=== PATIENT | male | born 1950 | race Caucasian/White ===

== ENCOUNTER 2017-10-21 14:35 | Inpatient (IN) | payer BC ==
--- NOTE | 2017-10-21 14:57 | CPEKG ---
Heart Rate: 90 RR Interval: 667 P-R Interval: 180 QRSD Interval: 88 QT Interval: 364 QTC Interval: 446 P [place]: 59 QRS [place]: 60 T Wave [place]: 4 EKG Severity - ABNORMAL ECG - EKG Impression: SINUS RHYTHM EKG Impression: ABNORMAL T, CONSIDER ISCHEMIA, ANTERIOR LEADS Electronically Signed By: Brina Goodwin 21-Oct-2017 22:11:31
[2017-10-21 15:07] LABS: PLATELET COUNT 219 10^3/uL (150-400)
[2017-10-21 15:10] LABS: CREATINE KINASE 91 IU/L (0-224)
--- NOTE | 2017-10-21 15:14 | EDPHY ---
H & P Time Seen by Provider: 10/21/17 14:55 HPI/ROS: HPI Short of breath, EKG changes. 67-year-old male by ambulance from his primary care physician's office. He is accompanied by his . He describes himself as a snow bird. [place] [facility] [place] the [place]. They are there for 6 months. He returned from [place] this morning. He tells me that over the last couple of days he has felt mildly short of breath. And has not been sleeping well. He reports that when he got home from [place] today both he and his tried to sleep. He does have a history of sleep apnea. He put on his CPAP machine. He reports he was trying to sleepy kept feeling like he needed to take a big deep breath in that he was not getting enough oxygen. He reports that he went to the pharmacy. He got a pulse oximetry meter. It read in the mid 80s. He then went over to his primary care physician's office. This is Dr. Rivera. An EKG was performed at his primary care's physician's office and his physician sent him here to the emergency department for further evaluation. He also reports scuba diving last weekend in [place]. ROS: Constitutional: No fever, no chills. Fatigue today. Eyes: No discharge. No changes in vision. ENT: No sore throat. No nasal congestion or rhinorrhea. Respiratory: No cough. As above. Cardiac: No chest pain, no palpitations. Gastrointestinal: No abdominal pain, no vomiting, no diarrhea. Genitourinary: No hematuria. No dysuria or increased frequency with urination. Musculoskeletal: No back pain. No neck pain. No myalgias or arthralgias. Skin: No rashes. Neurological: No headache. No focal weakness or altered sensation. Past medical history: Type 2 diabetes, hypertension, sleep apnea, uses CPAP, hyperlipidemia, acid reflux. Social history: Nonsmoker. Drinks a couple of alcohol beverages per night. Here with his . No IV drugs or street drugs. As above. Physical Exam: General Appearance: Alert, no distress. This patient is responding to questions appropriately and in full sentences. This patient appears well- hydrated and well-nourished. Eyes: Pupils equal and round no pallor or injection. No lid edema, erythema or injection. Respiratory: There are no retractions, lungs are clear to auscultation with good air movement bilaterally. Cardiovascular: Regular rate and rhythm. No murmur appreciated. Gastrointestinal: Abdomen is soft and nontender, no masses, bowel sounds normal. No focal tenderness at McBurney's point. No Longo sign. Neurological: Motor sensory function is grossly intact. Cranial nerves are normal. Gait is normal. Skin: Warm and dry, no rashes. Musculoskeletal: Neck is supple and nontender. Extremities are symmetrical. No calf tenderness on palpation. All joints range without pain or impingement. Psychiatric: No agitation. No depression. Database: EKG: EKG time is 2:55 p.m.; EKG shows a narrow complex normal sinus rhythm with a ventricular rate of 90. The HI, QRS, QT intervals are within normal limits. T- wave inversions with subtle ST depression V1, V2 and V3. No prior EKG for comparison. Interpreted by me. Imaging: CT angiogram of chest: Significant for bilateral pulmonary emboli, mild to moderate clot burden. Throughout bilateral segmental spit. Right heart enlargement. Results discussed with staff radiologist Dr. Chris wood. Bilateral lower extremity ultrasounds: Echocardiogram: Procedures: Emergency department course: Vital signs reviewed. At rest, pulse oximetry 87% on room air. On 2-3 L of nasal cannula oxygen he is 93-94% at rest. Moderate hypertension noted. Vital signs otherwise normal. IV was placed. He was placed on a equipment monitor phototypesetting. He denies any chest pain. He is not short of breath at rest. EKG obtained and reviewed by myself. I discussed CT angiogram to evaluate for pulmonary embolism. He consents. 4:50 p.m., patient re-evaluated. Resting comfortably at this time. Results of his diagnostic testing and diagnosis of pulmonary embolism discussed with him. Echocardiogram and bilateral lower extremity Doppler ultrasounds ordered. Hospitalist paged for admission. Plan will likely be to start this patient on Lovenox. 5:20 p.m., spoke with on-call hospitalist Dr. Collins. Patient's case discussed in detail with her. She agrees with Lovenox. Echocardiogram and bilateral lower extremity ultrasounds pending. Hospitalist will follow up on the studies. Plan for admission and further evaluation discussed with the patient and his . All of their questions were answered. The patient was admitted to telemetry under the care of Dr. Collins in stable condition. Differential Diagnosis: The differential diagnosis on this patient includes but is not limited to pulmonary embolism, air embolism, acute coronary syndrome, Wellen syndrome, CHF , pneumonitis. This represents a partial list of diagnoses considered. These considerations are based on history, physical exam, past history, reassessment and diagnostic testing. Smoking Status: Never smoked Constitutional: Initial Vital Signs Temperature (C) 36.7 C 10/21/17 14:35 Heart Rate 92 10/21/17 14:35 Respiratory Rate 18 10/21/17 14:35 Blood Pressure 141/99 H 10/21/17 14:35 O2 Sat (%) 87 L 10/21/17 14:35 O2 Delivery Mode Nasal Cannula O2 (L/minute) 2 Allergies/Adverse Reactions: No Known Allergies Allergy (Verified 04/05/16 14:27) Home Medications: Medication Instructions Recorded Atorvastatin Calcium [Lipitor 40 40 mg PO DAILY 08/25/12 mg (RX)] Lisinopril [Zestril 40 mg (RX)] 40 mg PO DAILY 08/25/12 metFORMIN HCL [Glucophage 1000 mg] 1,500 mg PO BIDMEAL 08/25/12 [place] 10/21/17 Medical Decision Making - Diagnostics Imaging Results: Imaging Impressions Chest/Thorax CTA 10/21/17 14:58 Impression: 1. Acute bilateral pulmonary thromboembolic disease. 2. Mild dilatation of the right heart. Recommend clinical correlation for evidence of right heart strain. 3. Incidental left thyroid nodule. Recommend dedicated thyroid ultrasound. Findings were communicated by telephone with Dr. Brina Goodwin MD at 10/21/2017 16:35 - Data Points Laboratory Results: Laboratory Results 10/21/17 14:35 10/21/17 14:35 10/21/17 10/21/17 10/21/17 14:35 14:35 14:35 WBC 11.42 10^3/uL H 10^3/uL (3.80-9.50) RBC 5.24 10^6/uL 10^6/uL (4.40-6.38) Hgb 16.5 g/dL g/dL (13.7-17.5) Hct 47.1 % % (40.0-51.0) MCV 89.9 fL fL (81.5-99.8) MCH 31.5 pg pg (27.9-34.1) MCHC 35.0 g/dL g/dL (32.4-36.7) RDW 13.0 % % (11.5-15.2) Plt Count 219 10^3/uL 10^3/uL (150-400) MPV 11.5 fL fL (8.7-11.7) Neut % (Auto) 74.3 % H % (39.3-74.2) Lymph % (Auto) 16.3 % % (15.0-45.0) Payne % (Auto) 6.7 % % (4.5-13.0) Eos % (Auto) 1.2 % % (0.6-7.6) Baso % (Auto) 0.4 % % (0.3-1.7) Nucleat RBC Rel Count 0.0 % % (0.0-0.2) Absolute Neuts (auto) 8.47 10^3/uL H 10^3/uL (1.70-6.50) Absolute Lymphs (auto) 1.86 10^3/uL 10^3/uL (1.00-3.00) Absolute Monos (auto) 0.77 10^3/uL 10^3/uL (0.30-0.80) Absolute Eos (auto) 0.14 10^3/uL 10^3/uL (0.03-0.40) Absolute Basos (auto) 0.05 10^3/uL 10^3/uL (0.02-0.10) Absolute Nucleated RBC 0.00 10^3/uL 10^3/uL (0-0.01) Immature Gran % 1.1 % % (0.0-1.1) Immature Gran # 0.13 10^3/uL H 10^3/uL (0.00-0.10) PT 13.4 SEC SEC (12.0-15.0) INR 1.00 (0.83-1.16) APTT 30.1 SEC SEC (23.0-38.0) Sodium 140 mEq/L mEq/L (135-145) Potassium 4.3 mEq/L mEq/L (3.5-5.2) Chloride 104 mEq/L mEq/L (97-110) Carbon Dioxide 23 mEq/l mEq/l (22-31) Anion Gap 13 mEq/L mEq/L (8-16) BUN 19 mg/dL mg/dL (7-23) Creatinine 0.8 mg/dL mg/dL (0.7-1.3) Estimated GFR > 60 Glucose 117 mg/dL H mg/dL (70-100) Calcium 9.7 mg/dL mg/dL (8.5-10.4) Creatine Kinase 91 IU/L IU/L (0-224) CK-MB (CK-2) Fraction 2.55 ng/mL ng/mL (0.00-3.19) Troponin I 0.032 ng/mL ng/mL (0.000-0.034) NT-Pro-B Natriuret Pep 1280 pg/mL H pg/mL (0-125) Departure - Departure Disposition: [facility] Inpatient Acute Clinical Impression: Dyspnea, Hypoxia, Pulmonary embolism
[2017-10-21] MEDS ORDERED: IOPAMIDOL (ISOVUE 370) 100 ML BTL IV ONE (15:30)
[2017-10-21 15:32] LABS: PROTIME(PATIENT) 13.4 SEC (12.0-15.0)
[2017-10-21] MEDS ORDERED: ENOXAPARIN 100 MG/ML SYR SC ONE (17:08)
[2017-10-21] MEDS ORDERED: ENOXAPARIN 120 MG/0.8 ML SYR SC ONE (17:15)
[2017-10-21] MEDS ORDERED: ONDANSETRON DISINTEGRATING 4 MG TAB PO PRN (17:40)
[2017-10-21] MEDS ORDERED: oxyCODONE IR 5 MG TAB PO PRN (17:40)
[2017-10-21] MEDS ORDERED: ONDANSETRON 4 MG/2 ML VIAL IVP PRN (17:40)
[2017-10-21] MEDS ORDERED: ACETAMINOPHEN 325 MG TAB PO PRN (17:40)
--- NOTE | 2017-10-21 18:47 | PDGENHP ---
History and Physical - Chief Complaint shortness of breath - History of Present Illness 67 yo male with h/o DM, hypertension, hyperlipidemia and sleep apnea presents to ED with shortness of breath and feeling of rapid heart rate. He just flew home from [place] yesterday, but he is adamant his symptoms started over a week ago. He also flew back to [place] in 08/2017 for a brief time, then returned to [place]. He went scuba diving 1 week ago. He denies recent surgery. His shortness of breath was first noted while sleeping. He also endorses dyspnea on exertion when hiking uphill in [place]. No chest pain or pleuritic pain. No fevers, chills or cough. His noted mild peripheral edema. In the ED, CTA revealed b/l PE. He was 1 mg / kg Lovenox and is admitted to the PCU for further management. History Information - Allergies/Home Medication List Allergies/Adverse Reactions: No Known Allergies Allergy (Verified 04/05/16 14:27) Home Medications: Aspirin [Aspirin 81mg (*)] 81 mg PO HS 10/21/17 [Last Taken 10/20/17] Atorvastatin Calcium [Lipitor 40 mg (*)] 40 mg PO HS 10/21/17 [Last Taken ] Fluticasone Nasal [Flonase Nasal [place] (RX)] 1 sprays NASAL HS 10/21/17 [Last Taken 10/20/17] Lisinopril [Zestril 20 mg (*)] 20 mg PO HS 10/21/17 [Last Taken 10/20/17] Pantoprazole Sodium [Protonix 40mg (*)] 40 mg PO HS 10/21/17 [Last Taken ] Saxagliptin HCl [Onglyza] 2.5 mg PO HS 10/21/17 [Last Taken 10/20/17] metFORMIN HCL [Glucophage 500 mg (*)] 1,000 mg PO DAILY@18 10/21/17 [Last Taken 10/20/17] metFORMIN HCL [Glucophage 500 mg (*)] 1,500 mg PO DAILY 10/21/17 [Last Taken ] I have personally reviewed and updated: family history, medical history, social history, surgical history - Past Medical History diabetes type 2, hypertension, hyperlipidemia Additional medical history: SANTOSH- on cpap - Surgical History Reports: no pertinent surgical hx - Family History Additional family history: son from complications of lupus (kidney failure s/p transplant). No family h/o clotting disorders - Social History Smoking Status: Never smoked Alcohol Use: Other (2 drinks daily, sometimes more. No h/o withdrawal) Drug Use: None Additional social history: Lives in [place] for summer, [place] for winter. , at bedside. 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 Review of Systems Review of Systems: ROS: 10pt was reviewed & negative except for what was stated in HPI & below Physical Exam Physical Exam: Temp Pulse Resp BP Pulse Ox 36.6 C 90 12 122/74 H 95 10/21/17 18:28 10/21/17 18:28 10/21/17 18:28 10/21/17 18:28 10/21/17 18:28 O2 (L/minute) 3 Constitutional: no apparent distress Eyes: PERRL Ears, Nose, Mouth, Throat: moist mucous membranes Cardiovascular: regular rate and rhythym, no murmur, rub, or gallop Respiratory: no respiratory distress, clear to auscultation Gastrointestinal: normoactive bowel sounds, soft, non-tender abdomen Skin: warm Musculoskeletal: full muscle strength Neurologic: AAOx3 Psychiatric: interacting appropriately Lab Data & Imaging Review 10/21/17 14:35 10/21/17 14:35 WBC 11.42 10^3/uL (3.80-9.50) H 10/21/17 14:35 RBC 5.24 10^6/uL (4.40-6.38) 10/21/17 14:35 Hgb 16.5 g/dL (13.7-17.5) 10/21/17 14:35 Hct 47.1 % (40.0-51.0) 10/21/17 14:35 MCV 89.9 fL (81.5-99.8) 10/21/17 14:35 MCH 31.5 pg (27.9-34.1) 10/21/17 14:35 MCHC 35.0 g/dL (32.4-36.7) 10/21/17 14:35 RDW 13.0 % (11.5-15.2) 10/21/17 14:35 Plt Count 219 10^3/uL (150-400) 10/21/17 14:35 MPV 11.5 fL (8.7-11.7) 10/21/17 14:35 Neut % (Auto) 74.3 % (39.3-74.2) H 10/21/17 14:35 Lymph % (Auto) 16.3 % (15.0-45.0) 10/21/17 14:35 Mathe[place] % (Auto) 6.7 % (4.5-13.0) 10/21/17 14:35 Eos % (Auto) 1.2 % (0.6-7.6) 10/21/17 14:35 Baso % (Auto) 0.4 % (0.3-1.7) 10/21/17 14:35 Nucleat RBC Rel Count 0.0 % (0.0-0.2) 10/21/17 14:35 Absolute Neuts (auto) 8.47 10^3/uL (1.70-6.50) H 10/21/17 14:35 Absolute Lymphs (auto) 1.86 10^3/uL (1.00-3.00) 10/21/17 14:35 Absolute Monos (auto) 0.77 10^3/uL (0.30-0.80) 10/21/17 14:35 Absolute Eos (auto) 0.14 10^3/uL (0.03-0.40) 10/21/17 14:35 Absolute Basos (auto) 0.05 10^3/uL (0.02-0.10) 10/21/17 14:35 Absolute Nucleated RBC 0.00 10^3/uL (0-0.01) 10/21/17 14:35 Immature Gran % 1.1 % (0.0-1.1) 10/21/17 14:35 Immature Gran # 0.13 10^3/uL (0.00-0.10) H 10/21/17 14:35 PT 13.4 SEC (12.0-15.0) 10/21/17 14:35 INR 1.00 (0.83-1.16) 10/21/17 14:35 APTT 30.1 SEC (23.0-38.0) 10/21/17 14:35 Sodium 140 mEq/L (135-145) 10/21/17 14:35 Potassium 4.3 mEq/L (3.5-5.2) 10/21/17 14:35 Chloride 104 mEq/L (97-110) 10/21/17 14:35 Carbon Dioxide 23 mEq/l (22-31) 10/21/17 14:35 Anion Gap 13 mEq/L (8-16) 10/21/17 14:35 BUN 19 mg/dL (7-23) 10/21/17 14:35 Creatinine 0.8 mg/dL (0.7-1.3) 10/21/17 14:35 Estimated GFR > 60 10/21/17 14:35 Glucose 117 mg/dL (70-100) H 10/21/17 14:35 Calcium 9.7 mg/dL (8.5-10.4) 10/21/17 14:35 Creatine Kinase 91 IU/L (0-224) 10/21/17 14:35 CK-MB (CK-2) Fraction 2.55 ng/mL (0.00-3.19) 10/21/17 14:35 Troponin I 0.032 ng/mL (0.000-0.034) 10/21/17 14:35 NT-Pro-B Natriuret Pep 1280 pg/mL (0-125) H 10/21/17 14:35 Visualized and Interpreted Chest x-ray results: Yes Chest X-Ray results: no infiltrate Visualized and Interpreted EKG results: Yes EKG Interpretation: Positive for: ST depression, T waves inversion EKG additional interpertation: S1, Q3, T3, suggestive of right heart strain Assessment & Plan Assessment: B/L PE - suspect provoked with recent air travel in 08/2017 and again this am. Symptoms started 1 week prior to air travel today. LE U/S neg for DVT. He may have suffered DVT from August travel which recently migrated. Mild hypoxemia and e/o right heart strain on CT and EKG. -admit to telemetry -Lovenox 1 mg/kg, discussed transition to NOAC at d/c and reviewed bleeding risk with etoh use -check echo -trend trop -send hypercoag panel AHRF - due to above. 2 LPM. -wean O2 as able DM type 2 - not on insulin. -hold MTF given contrast load -SSI Hypertension - adequate control, cont home lisinopril dose Hyperlipidemia - cont statin SANTOSH -home CPAP Etoh use - no h/o withdrawal, monitor. Full code Dispo - inpt, anticipate >48 hrs hospitalization given PE clot burden and e/o right heart strain
--- NOTE | 2017-10-21 18:57 | ECHO ---
[email or web address] [address] Main: [phone] Fax: Transthoracic Echocardiogram Name: ALLAN PETER MR#: [id number] Study Date: 10/21/2017 Study Time: 06:21 PM Date of : 1950 Age: 67 year(s) Height: 188 cm (74 in.) Weight: 108.86 kg (240 lb.) BSA: 2.35 m2 Gender: Male Examination: Echo Indication: Chest Pain Image Quality: Contrast: Requested by: Brina Wooten BP: / Heart Rate: Rhythm: Indication: Chest Pain Procedure Staff President Sales And Marketing: Shea Briceno RDCS Reading Physician: Karl Vencse MD Requesting Provider: Conclusions: No pericardial effusion. Preserved left ventricular systolic function ejection fraction 52%. Septal flattening consistent with RV volume and pressure overload. Severely dilated right ventricle with reduced RV systolic function. Mild mitral regurgitation mild tricuspid regurgitation. Measurements: Chambers Valvular Assessment AV/MV Valvular Assessment TV/PV Normal Normal Normal Name Value Range Name Value Range Name Value Range Ao Marine (2D): 3.2 cm (1.4 cm-2.6 AV meanP mmHg ( - ) TR Vmax: 2.84 mm/s ( - ) cm) NEHEMIAS (VTI): 2.0 cm ( - ) TR PGmax: 32 mmHg ( - ) IVSd (2D): 1.4 cm (0.6 cm-1.1 MV E Vmax: 0.35 m/s ( - ) syst. PAP: 37 mmHg ( - ) cm) MV A Vmax: 0.79 m/s ( - ) PV Vmax: 0.58 m/s (0.6 m/s-0.9 LVDd (2D): 4.4 cm (4.2 cm-5.9 MV E/A: 0.44 ( - ) m/s) cm) MV PHT: 0.078 s ( - ) PV PGmax: 1 mmHg ( - ) LVDs (2D): 2.8 cm (2.1 cm-4 cm) MVA (PHT): 2.8 s ( - ) LVPWd (2D): 1.2 cm (0.6 cm-1 cm) LVOTd 2.0 cm 2.0 cm mm LVEF (BP): 52 % (>=55 %) RVDd(2D): 3.7 cm (1.9 cm-3.8 cmmm) Continued Measurements: Chambers Valvular Assessment AV/MV Valvular Assessment TV/PV Name Value Name Value Name Value LADs: 3.8 cm MV DecTime: 204 m/s CVP (est.): 5 mmHg LADs Lon.6 cm MV E' Septal: 0.05 m/s Patient: ALLAN PETER Study Date: 10/21/2017 Page 1 of 2 06:21 PM LA Area: 17.1 cm2 MV E/E' Septal: 7.00 LA Volume: 56 ml MV E/E' Lateral: 5.30 LA Volume Index: 23.8 ml/m2 RA Area: 33.5 cm2 Additional Vessels Name Value Ao Ascendin.1 cm Inferior Vena Cava: 1.8 cm Findings: Left Ventricle: Normal size left ventricle. No LV hypertrophy. Normal global systolic LV function. EF is 52 %. No regional wall motion abnormality. Unable to assess diastolic dysfunction. Right Ventricle: Severely dilated right ventricle. There is abnormal septal motion with diastolic flattening suggestive of RV volume/pressure overload. . RV MEASURES 6.41 CM BY 3.9 CM. Left Atrium: The left atrium is normal in size. Right Atrium: The right atrium is normal in size. Mitral Valve: The mitral valve is normal in appearance and function. Mild mitral valve regurgitation is present. No mitral stenosis is present. Aortic Valve: The aortic valve is normal in appearance and function. There is no aortic valve regurgitation. No aortic valve stenosis is present. Tricuspid Valve: The tricuspid valve is normal in appearance and function. Right ventricular systolic pressure measures 37mmHg. Mild tricuspid regurgitation is present. Pulmonic Valve: The pulmonic valve is normal in appearance and function. There is no pulmonic regurgitation seen. Aorta: The aorta is normal. Normal size aortic root measuring 3.2 cm. Normal size ascending aorta measuring 3.1 cm. IVC: The IVC is normal sized. Pericardium: No pericardial effusion. No pleural effusion. (No Signature Object) Patient: ALLAN PETER Study Date: 10/21/2017 Page 2 of 2 06:21 PM [id number]
[2017-10-21] MEDS ORDERED: D50W 25 GM/50 ML VIAL IVP PRN (19:07)
[2017-10-21] MEDS ORDERED: LISINOPRIL 20 MG TAB PO SCH (21:00)
[2017-10-21] MEDS: ATORVASTATIN CALCIUM 40 MG TAB PO SCH (22:01)
[2017-10-21] MEDS: PANTOPRAZOLE SODIUM 40 MG TAB PO SCH (22:01)
[2017-10-21] MEDS: FLUTICASONE NASAL 120 SPRAYS/16 GM MDI EACHNARE SCH (22:02)
[2017-10-22 04:41] LABS: PLATELET COUNT 204 10^3/uL (150-400)
[2017-10-22] MEDS: ENOXAPARIN 120 MG/0.8 ML SYR SC SCH ×2 (06:14→18:10)
--- NOTE | 2017-10-22 08:01 | HOSPPROG ---
Hospitalist Progress Note Assessment/Plan: DIAGNOSES: -acute bilateral pulmonary emboli, small volume, with mild hypoxemia but stable pulse and blood pressure and minimally symptomatic -acute hypoxemic respiratory failure with 87% room air oxygen saturation -echocardiogram showing severe RV dilation and poor RV function, but with pulmonary pressure of only 37 -10 beat run of ventricular tachycardia, asymptomatic -diabetes mellitus type 2 on oral medications -chronic hypertension on medication -hyperlipidemia on chronic statin -chronic obstructive sleep apnea on CPAP -type 2 diabetes mellitus, well controlled here so far I also visited the patient on multidisciplinary rounds today in addition to my other visits with him I reviewed the patient's case today in detail with Dr. Robson Gautam. I am concerned that he has such severe RV abnormalities on the echocardiogram both in terms of dilation and poor function. This with pulmonary pressures of only 37. It raises concern for me that he may have chronic pulmonary hypertension and right heart disease. Otherwise I would expect a much higher pulmonary pressure if this were all acute. 1 possibility is that he has pulmonary hypertension from sleep apnea, another possibility is that he has had prior undiagnosed but resolved PEs that have left him with pulmonary hypertension, or there could be other causes such as idiopathic though he is not a person I would feel at high risk for this. Related issues include 1) making sure that we understand all the causes of his pulmonary hypertension as best were able, 2 ) determining how long he should be on anticoagulation as I would consider lifetime anticoagulation if his right heart abnormalities and/or pulmonary hypertension persist over time (in particular am worried about this due to his very active lifestyle at present which is at risk, and also that given his frequent travel back and forth to [place] and his family history of lupus he may be at higher risk of recurrent PEs than the average person, this being an unprovoked PE for him) Also now with the ventricular tachycardia coming up today, would question whether he might have coronary disease, whether he might have arrhythmogenic right ventricular disease, or another cause of the V-tach. Dr. Gautam will assess the patient to help with the dress these questions PLANS: -continue negative cutter for ventricular tachycardia -continue Lovenox for now, monitor closely; will determine time of discharge based on how he is doing with his heart and pulmonary issues -plan on discharging probably on Eliquis -likely stress test or other coronary says met for discharge -add beta-edelmira if he has any more V-tach -12 lead EKG ordered -follow-up echocardiogram in probably 3 months, determine duration of anticoagulant therapy based on recovery and other issues -continue to monitor sugars -continue to hold metformin until 48 hr after his IV contrast SUBJECTIVE: His presenting symptoms have improved No chest pain at all The patient on negative cutter did have a 10 beat run of ventricular tachycardia today, as well as frequent PVCs, all asymptomatic OBJECTIVE Vitals reviewed: Stable without fever, still requiring low-flow oxygen for normal oxygenation 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, 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: Sinus rhythm, with frequent PVCs and a 10 beat run of V-tach Exam: alert oriented skin warm dry color ok resps not labored lungs clear BSs heart regular abd soft nondistended nontender, bowel sounds present limbs warm, no edema iv site ok Laboratory data: Sugars in reasonable range at this time without medication Radiology: I reviewed the CT scan images and I do appreciate the bilateral small volume PEs , without infarct Echocardiogram: Normal left ventricular ejection fraction and wall motions, however has severely dilated and hypokinetic RV with pulmonary pressures of 37, no significant valvular abnormalities Objective: Vital Signs Temp Pulse Resp BP Pulse Ox 36.4 C 84 18 134/85 H 93 10/22/17 07:51 10/22/17 07:51 10/22/17 07:51 10/22/17 07:51 10/22/17 07:51 Laboratory Results 10/22/17 03:32 10/21/17 10/22/17 10/23/17 06:59 06:59 06:59 Intake Total 300 Balance 300 PT 13.4 SEC (12.0-15.0) 10/21/17 14:35 INR 1.00 (0.83-1.16) 10/21/17 14:35 - Time Spent With Patient Time Spent with Patient: greater than 35 minutes Time Spent with Patient: Greater than 35 minutes spent on this patients care, greater than 50% of time spent counseling, educating, and coordinating care regarding the above mentioned plan. ICD10 Worksheet Patient Problems: Problems Problem Status Onset Dyspnea Acute Hypoxia Acute Pulmonary embolism Acute
[2017-10-22] MEDS: INSULIN LISPRO 100 UNIT/ML SC SCH ×3 (09:21→18:35)
--- NOTE | 2017-10-22 10:29 | PDMN ---
Medical Necessity Medical necessity: Patient meets inpatient criteria per physician note and [facility] M -290 PE (patient presents with shortness of breath and feeling of rapid heart rate; sat 87% on RA, echo shows severely dilated RV with evidence of R heart strain on CT and EKG also; anticipated LOS > 2 midnights for telemetry, supplemental O2, anticoagulation.)
--- NOTE | 2017-10-22 13:51 | ASMTCMCOM ---
CM Note CM Note Notes: 10/22/2017 Case Management Note Discussed pt during multidisciplinary rounds this morning. Pt was admitted with pulmonary embolisms and hypoxia. There are no case management d/c needs identified d/t pt age, marital status and activity levels prior to admission. Pt ambulates without difficulty in his room. Case Management d/c poc: anticipating independent with follow up as directed. Case Management available if needs change. Date Signed: 10/22/2017 01:50 PM Electronically Signed By:Divina Mtz RN
--- NOTE | 2017-10-22 15:16 | GHP ---
[f rep st] HISTORY AND PHYSICAL DATE OF ADMISSION: 10/21/2017 REFERRING PHYSICIAN: Dr. Toribio CHIEF COMPLAINT: We have been asked by Dr. Toribio to evaluate the patient with symptoms of dyspnea, abnormal EKG, and nonsustained ventricular tachycardia on telemetry monitoring. HISTORY OF PRESENT ILLNESS: The patient is a 67-year-old gentleman with risk factors including age, hypertension, hyperlipidemia, and diabetes mellitus, who presented to the hospital on 10/21/2017, wit h symptoms of dyspnea. Patient was in his usual state of health until approximately 1 week prior to admission when he began to experience symptoms of increased dyspnea when walking up hills. This was followed by the sensation of having to take a deep breath when he would lay down to go to sleep. Starr logan also noted the sensation of his heart working hard or pounding when he was exercising as well. Patient went to the drug store and bought a pulse oximeter monitor and noticed that his saturations w ere in the mid 80s. He presented to his primary care doctor's office for further evaluation. There, he had an EKG performed demonstrating T-wave inversions across the precordium. He was sent to the e mergency department for further evaluation. In the emergency department, he was ultimately diagnosed with multiple bilateral pulmonary emboli and was admitted for further management. While in the hospital, on telemetry monitoring, patient was no kateryna to have several runs of nonsustained ventricular tachycardia. Patient was asymptomatic with resp ect to these rhythms. Patient denies a previous history of coronary artery disease. There is no his tory of palpitations, orthopnea, or PND. Patient does spend half his time in [place] and half his ivy e in [place]. Patient does report recent air travel that was prolonged in duration. However, his s ymptoms predated his air travel. PAST MEDICAL HISTORY: 1. Hypertension. 2. Hyperlipidemia. 3. Diabetes mellitus. 4. Obstructive sleep apnea. MEDICATIONS: 1. Aspirin. 2. Atorvastatin. 3. Fluticasone. 4. Lisinopril. 5. Pantoprazole. 6. Glucophage. ALLERGIES: No known drug allergies. SOCIAL HISTORY: Patient works in [employer]. He does not smoke. He denies problems with alcohol. FAMILY HISTORY: Notable for lupus. REVIEW OF SYSTEMS: 10-point review of systems is negative except as noted in HPI. PHYSICAL EXAMINATION: GENERAL: Patient is resting comfortably in a chair. He does not appear to be in acute distress. VITAL SIGNS: Temperature is afebrile. Pulse is 77, blood pressure 147/90, resp iratory rate was 18, SaO2 is 94% on 1 L nasal cannula. HEENT: Normocephalic, atraumatic. Extraocul ar muscles intact. NECK: No JVD. No bruits. LUNGS: Clear to auscultation bilaterally. CARDIOVAS CULAR: Regular rate and rhythm. S1, S2. No murmurs, rubs, or gallops appreciated. ABDOMEN: Soft, nontender. Normoactive bowel sounds. No hepatosplenomegaly noted. Aorta could not be adequately p alpated. EXTREMITIES: Trace edema bilaterally. SKIN: No evidence of rashes. NEUROLOGIC: Nonfoca l. LABORATORY: White blood cell count is 9.0, hemoglobin 15.0, hematocrit 43.7, platelet count 204. IN R 1.0. Sodium 140, potassium 4.3, chloride 104, carbon dioxide 23, BUN 19, creatinine 0.8. Troponin within normal limits x2. Hemoglobin A1c is 6.6. EKG demonstrates sinus rhythm. Normal axis, normal intervals. T-wave inversions in leads V1 through V4. Echocardiogram demonstrates normal left ventricular size and systolic function. The right ventricle is dilated and hypokinetic. ASSESSMENT AND PLAN: 1. The patient is a 67-year-old gentleman who presented to the emergency department with 1-week hist ory of progressive dyspnea on exertion associated with hypoxemia. He was ultimately diagnosed with m ultiple bilateral pulmonary emboli which certainly would explain his symptomatology and findings. On the other hand, patient does have multiple cardiac risk factors and was noted to have T-wave inversi ons across the precordium which were new compared to 2015. Patient was also noted to have episodes o f nonsustained ventricular tachycardia on telemetry monitoring. I think it would be prudent to obtai n a stress test to exclude ischemia as another potential source for his symptoms. Will arrange to sears ve this performed. 2. Hypertension. Patient has a long history of hypertension. His blood pressure has been well cont rolled on lisinopril. Will continue current therapy. 3. Hyperlipidemia. Patient has a long history of hyperlipidemia. His cholesterol has been managed well with Lipitor. 4. Diabetes mellitus. Patient has a history of type 2 diabetes mellitus. His hemoglobin A1c is 6.6 . He is on metformin therapy. /[id number]/MODL
[2017-10-22] MEDS ORDERED: SODIUM CL NASAL 45 ML BTL EACHNARE PRN (16:36)
[2017-10-22] MEDS: ATORVASTATIN CALCIUM 40 MG TAB PO SCH (21:19)
[2017-10-22] MEDS: PANTOPRAZOLE SODIUM 40 MG TAB PO SCH (21:19)
[2017-10-22] MEDS: FLUTICASONE NASAL 120 SPRAYS/16 GM MDI EACHNARE SCH (23:23)
[2017-10-23] MEDS: ENOXAPARIN 120 MG/0.8 ML SYR SC SCH ×2 (06:21→17:56)
[2017-10-23] MEDS: INSULIN LISPRO 100 UNIT/ML SC SCH ×3 (07:53→21:35)
--- NOTE | 2017-10-23 09:21 | HOSPPROG ---
Hospitalist Progress Note Assessment/Plan: DIAGNOSES: -acute bilateral pulmonary emboli, small volume, with mild hypoxemia but stable pulse and blood pressure and minimally symptomatic -acute hypoxemic respiratory failure with 87% room air oxygen saturation -severe RV dilation and poor RV function by echo, but with pulmonary pressure of only 37 - ? If this suggests a chronic pulmonary pressure issue or other chronic right heart disorder (ie ? Why such severe right ventricular dilation and weakness with minimal elevation of pulmonary pressure at this time) -10 beat run of ventricular tachycardia on 10/22, asymptomatic; frequent PVCs; normal LV function on echo -chronic hypertension on medication -hyperlipidemia on chronic statin -chronic obstructive sleep apnea on CPAP -type 2 diabetes mellitus, well controlled here so far * Off his usual metformin and till later today due to CT scan dye * Currently off his saxagliptin as it is a non formulary medicine here, waiting for it to be brought from home I also visited the patient on multidisciplinary rounds today in addition to my other visits with him Reviewed in detail with Dr. Gautam today The severe right ventricular dysfunction with out significant rise in pulmonary pressures raises a question of whether he has either chronic pulmonary hypertension and 2 week of ventricle now to create higher pressures or chronic rate heart disease of other etiology. VT episode raises suspicion for CAD in this diabetic hypertensive pt, though ? If he might have a arrhythmogenic right ventricular dysplasia or other cause PLANS: -continue economic specialist for ventricular tachycardia; Lexiscan stress test tomorrow for further assessment -continue Lovenox for now -plan on discharging probably on Eliquis -add beta-edelmira if he has any more V-tach -12 lead EKG ordered -follow-up echocardiogram in probably 3 months, determine duration of anticoagulant therapy based on right ventricular recovery and other issues -continue to monitor sugars -continue to hold metformin until 48 hr after his IV contrast SUBJECTIVE: No new symptoms today, has not been ambulating but is not short of breath sitting in chair on oxygen No chest pains No fever symptoms, no palpitations Nurses have not noticed any acute issues overnight OBJECTIVE Vitals reviewed: Stable without fever, still requiring low-flow oxygen for normal oxygenation 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, 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: Sinus rhythm, with frequent PVCs, no recurrent episodes of VT overnight Exam: alert oriented skin warm dry color ok resps not labored lungs clear BSs heart regular abd soft nondistended nontender, bowel sounds present limbs warm, no edema iv site ok Laboratory data: Sugars in reasonable range at this time without medication CBC is stable today Radiology: CT angio chest with bilateral small volume PEs, without infarct Echocardiogram: Normal left ventricular ejection fraction and wall motions, however has severely dilated and hypokinetic RV with pulmonary pressures of 37, no significant valvular abnormalities Objective: Vital Signs Temp Pulse Resp BP Pulse Ox 36.5 C 72 20 119/86 H 94 10/23/17 07:11 10/23/17 07:11 10/23/17 07:11 10/23/17 07:11 10/23/17 07:11 Laboratory Results 10/22/17 03:32 10/22/17 10/23/17 10/24/17 06:59 06:59 06:59 Intake Total 300 Balance 300 PT 13.4 SEC (12.0-15.0) 10/21/17 14:35 INR 1.00 (0.83-1.16) 10/21/17 14:35 - Time Spent With Patient Time Spent with Patient: greater than 35 minutes Time Spent with Patient: Greater than 35 minutes spent on this patients care, greater than 50% of time spent counseling, educating, and coordinating care regarding the above mentioned plan. ICD10 Worksheet Patient Problems: Problems Problem Status Onset Dyspnea Acute Hypoxia Acute Pulmonary embolism Acute
--- NOTE | 2017-10-23 12:26 | ASMTCAGE ---
CAGE Do you feel you ought to Answers: No cut down on your drinking or drug use? Do people annoy you by Answers: No criticizing your drinking or drug use? Do you feel guilty about Answers: No your drinking or drug use? 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 Additional Comments when in [place] binge drinking once a month. 2 drinks per day (1 finger scotch + beer or 2 scotch). Declined any resources. Date Signed: 10/23/2017 12:26 PM Electronically Signed By:Divina Mtz RN
--- NOTE | 2017-10-23 12:27 | ASMTCMCOM ---
CM Note CM Note Notes: 10/23/2017 Case Management Note Discussed pt during rounds this morning. Pt to have stress test tomorrow morning. Met w/pt to complete CAGE. Case Management d/c poc remains home independent. Date Signed: 10/23/2017 12:27 PM Electronically Signed By:Divina Mtz RN
[2017-10-23] MEDS ORDERED: metFORMIN HCL 500 MG TAB PO SCH (18:00)
[2017-10-23] MEDS: ATORVASTATIN CALCIUM 40 MG TAB PO SCH (20:17)
[2017-10-23] MEDS: HYDROCORTISONE 1% CREAM TP SCH (20:17)
[2017-10-23] MEDS: FLUTICASONE NASAL 120 SPRAYS/16 GM MDI EACHNARE SCH (21:35)
[2017-10-23] MEDS: PANTOPRAZOLE SODIUM 40 MG TAB PO SCH (21:39)
[2017-10-24] MEDS: ENOXAPARIN 120 MG/0.8 ML SYR SC SCH (07:55)
[2017-10-24] MEDS: INSULIN LISPRO 100 UNIT/ML SC SCH ×2 (08:40→16:22)
[2017-10-24] MEDS ORDERED: metFORMIN HCL 500 MG TAB PO SCH (09:00)
[2017-10-24] MEDS ORDERED: REGADENOSON 0.4 MG/5 ML SYR IVP ONE (09:42)
[2017-10-24] MEDS: HYDROCORTISONE 1% CREAM TP SCH (10:35)
--- NOTE | 2017-10-24 11:09 | PDHOMEO2F ---
Home Oxygen Face to Face Home Orders: I certify that a physician or a nurse practitioner or physician's digital marketing assistant has had a [id number] encounter with this patient on the date of this order due to the diagnosis listed, which relates to the primary reason the patient requires home oxygen. Alternative treatments have been tried, or considered, and deemed ineffective. It is anticipated that supplemental oxygen will result in improvement with treatment. Home oxygen qualifying diagnosis: Acute bilateral pulmonary embolism SpO2 on room air (%): 86 Frequency of home oxygen needed: continuous Home oxygen liters per minute: 2 Home oxygen delivery device: nasal cannula, via CPAP Concentrator: Yes E-tanks for mobility and back up: Yes If ordering portable O2, is the patient mobile in the home?: Yes I certify that, based on these findings, the home oxygen is medically necessary for this patient for the following length of time. Length of time home oxygen needed: 1 month
[2017-10-24 12:12] VITALS: BP 123/81
--- NOTE | 2017-10-24 12:40 | CPR ---
[f rep st] NONINVASIVE CARDIAC PROCEDURE REPORT PROCEDURE PERFORMED: Lexiscan injection of Lexiscan myocardial perfusion imaging study. INDICATION FOR PROCEDURE: Chest pressure with recent diagnosis of pulmonary emboli and elevated trop onin. PRE: After obtaining informed consent and ensuring the patient's n.p.o. status of caffeine for great er than 12 hours, he was placed on electrocardiogram. Initial EKG shows sinus rhythm, normal axis, m ultiple inverted T-waves in V1 through V4, nonspecific T-waves in inferior leads. Occasional prematu re ventricular contraction. Patient currently denies any chest pain, shortness of breath, or symptom s suggesting of ischemia. Initial blood pressure 122/80, saturation 91% on 2 L nasal cannula. INJECTION: Patient was given Lexiscan slow IV push, followed by nuclear isotope. Within 2 minutes o f injection, patient's heart rate did elevate up to 103 BPM. The patient did report flush sensation with mild shortness of breath, but no chest pressure or pain. No significant EKG changes, occasional PVC. Patient was given caffeinated beverage at 3 minutes, and within 5 minutes of post injection, s ymptoms all subsided. Final vital signs at 6 minutes post injections were heart rate at 90 beats per minute, blood pressure 143/85, saturation 94%. Again, no significant EKG changes. The patient is c urrently asymptomatic of any symptoms. IMPRESSION: A 67-year-old male with recent diagnosis of pulmonary emboli with significant electrocar diogram changes, suggesting possible anterior ischemia. Being evaluated for cardiac ischemia. No si gnificant electrocardiogram changes with Lexiscan. Did report mild shortness of breath and flushing sensation with injection that did subside with caffeinated beverage. Currently, vital signs are stab le and he is asymptomatic of any symptoms. He will finish poststress imaging and myocardial perfusio n imaging at this time. /[id number]/MODL
--- NOTE | 2017-10-24 16:30 | SOAPPROG ---
ILAN Progress Note Assessment/Plan: 1. dyspnea - Pt presented with a 1 week history of dyspnea and hypoxemia. He was diagnosed with B pulmonary emboli. Symptoms improved since starting anticoagulation. Pt also noted to have new EKG changes associated with his dyspnea. Biomarkers were with in normal limits. Given multiple risk factors and EKG changes Pt was scheduled for a stress test for risk stratification. The stress test demonstrated a "subtle possible small area of focal ischemia of the LV apex. Reviewed findings of stress test with patient and his . Discussed treatment options including cardiac catheterization and medical management. Pt wishes to persue medical management at this time. 2. RV hypokinesis and dilation - Pt has RV hypokinesis and dilation on his echocardiogram. Suspect secondary to PE. Can not exclude long standing SANTOSH or other source. Will repeat echocardiogram in 2 to 3 months. 10/24/17 16:25 Subjective: No chest pain No orthopnea or PND dyspnea improved Objective: Vital Signs Temp Pulse Resp BP Pulse Ox 36.3 C 78 12 123/81 H 94 10/24/17 12:00 10/24/17 12:00 10/24/17 12:00 10/24/17 12:00 10/24/17 11:21 Laboratory Results 10/22/17 03:32 10/23/17 10/24/17 10/25/17 05:59 05:59 05:59 Intake Total 250 Balance 250 PT 13.4 SEC (12.0-15.0) 10/21/17 14:35 INR 1.00 (0.83-1.16) 10/21/17 14:35 - Time Spent With Patient Time Spent With Patient: Greater than 50% of this 20 min visit was spent discussing cardiovascular testing and treatment options. Physical Exam - Physical Exam General Appearance: alert, no apparent distress Respiratory: lungs clear Cardiac/Chest: regular rate, rhythm Extremities: No pedal edema Neuro/Psych: alert, oriented x 3 ICD10 Worksheet Patient Problems: Problems Problem Status Onset Dyspnea Acute Hypoxia Acute Pulmonary embolism Acute
--- NOTE | 2017-10-24 18:48 | PDDCSUM ---
Discharge Summary Discharge Summary: DISCHARGE SUMMARY FOLLOW-UP ITEMS: Repeat echocardiogram in 2 months Factor 5 Leiden results pending at time discharge DATE OF ADMISSION: 10/21/2017 DATE OF DISCHARGE: 10/24/2017 DISCHARGE DIAGNOSES: 1. Acute bilateral pulmonary emboli present on admission 2. Acute hypoxic respiratory failure 3. Acute nonsustained ventricular tachycardia 4. Acute right ventricular hypokinesis and dilation 5. Chronic obstructive sleep apnea CONSULTATIONS: Cardiology PROCEDURES / IMAGING: Lexiscan stress test demonstrating apical thinning Echocardiogram demonstrating dilation the right ventricle and moderate reduction in function, with a relatively normal RVSP CHIEF COMPLAINT: Acute shortness of breath SUBJECTIVE: Patient is feeling well at time of discharge, he is able to ambulate PHYSICAL EXAM ON DISCHARGE: Systolic blood pressure 120-140, heart rate 70-80, afebrile overnight, satting 86% on room air at rest, lungs clear to auscultation bilaterally, pain level 0/ 10, alert awake oriented x3 LABS ON DISCHARGE: White blood cell count 9000, hemoglobin 15, creatinine 0.8, hemoglobin A1c 6.6% , troponin level negative, BNP 1200 HOSPITAL COURSE BY PROBLEM: The patient presented with acute shortness of breath secondary to acute bilateral pulmonary emboli resulting in acute hypoxic respiratory failure evidenced by SpO2 levels as low as 83% on room air, requiring up to 4 L nasal cannula oxygen with symptomatic shortness of breath and dyspnea with exertion. The patient required supplemental oxygen throughout his hospitalization and was satting 86% on room air at time discharge, with home oxygen arranged for him prior to discharge. He was initiated on systemic anticoagulation with therapeutic Lovenox, and was transitioned to Eliquis. He was seen by Cardiology given the significant reduction in his right ventricular function as well as dilation, but seemingly normal right ventricular systolic pressure. He underwent a cardiac stress test which was essentially normal. Consequently, Dr. Gautam hypoxia size that the patient's right ventricular dysfunction was secondary to his pulmonary emboli, and he would reassess an echocardiogram in 2 months time. The patient did experience some provoked nonsustained ventricular tachycardia in the setting of his pulmonary embolism and hypoxia, and he was subsequently initiated on metoprolol succinate 25 mg once daily to be reassessed in the outpatient setting. He was continued on his other home medications and will follow up with both his primary care provider as well as Dr. Gautam. It is unclear whether the patient's blood clots originated from his lower extremities, as is lower extremity ultrasounds did not demonstrate evidence of DVT but did demonstrate slow blood flow. It is certainly possible the patient may have had blood clots originating in the setting of recent travel, with embolization during that travel time, and then symptomatic worsening upon arriving back in [place]. He has some FVL hypercoagulable profile labs pending at time of discharge. DISCHARGE MEDICATIONS: Please see official discharge medication reconciliation sheet in chart comma Eliquis 10 mg twice daily, weaned to 5 mg twice daily once appropriate, metoprolol succinate 25 mg once daily, continue other home medications. DISCHARGE INSTRUCTIONS: Please follow up with primary care provider in 1-2 weeks, and Dr. Gautam thereafter. TIME SPENT: Greater than 30 minutes were spent on direct patient care, as well as discharge planning and preparation.
== END 2017-10-24 17:22 | disposition home or self-care (01) | DRG 175 ==
LOC: EDUNIT# → F2W 18:13
PROVIDERS: ADMIT Hospitalist; ATTEND Hospitalist
DX: I26.99 Other pulmonary embolism without acute cor pulmonale (principal); I47.2 Ventricular tachycardia; J96.01 Acute respiratory failure with hypoxia; E11.9 Type 2 diabetes mellitus without complications; I10 Essential (primary) hypertension; G47.33 Obstructive sleep apnea (adult) (pediatric); E78.5 Hyperlipidemia, unspecified
CPT/HCPCS: 85300-90; 85303-90; 85306-90; 86147-90; A9500; J1650; J2785; Q9967

== ENCOUNTER 2018-03-09 01:13 | Observation (INO) | payer BC ==
--- NOTE | 2018-03-09 01:42 | EDPHY ---
H & P Stated Complaint: palpations Time Seen by Provider: 03/09/18 01:31 HPI/ROS: CHIEF COMPLAINT: Chest pain palpitations dyspnea HISTORY OF PRESENT ILLNESS: 67-year-old male history of bilateral pulmonary emboli currently on Xarelto, history of right ventricular hypokinesis, ventricular tachycardia history, arrives via private vehicle complaining of chest pain, dyspnea, palpitations which started midnight while he was watching TV. He went to a republic[employer] this evening had 2-3 beers. He denies: Headache, abdominal pain, nausea, vomiting, back pain PRIMARY CARE PROVIDER: Dr. Liam Gan REVIEW OF SYSTEMS: 10 systems reviewed and negative with the exception of the elements mentioned in the history of present illness PAST MEDICAL & SURGICAL HISTORY: Current treatment for bilateral pulmonary emboli with Xarelto. Right ventricular hypokinesis. Prior history of an trigger tachycardia. Diabetes. SOCIAL HISTORY: Positive for 2-3 beers this evening. PHYSICAL EXAM (Prior to examination, patient consented to physical exam, hands were washed and my usual and customary physical exam procedures followed) 1) GENERAL: Well-developed, well-nourished, alert and oriented. Appears to be in no acute distress. 2) HEAD: Normocephalic, atraumatic 3) HEENT: Pupils equal, round, reactive to light bilaterally. Sclera anicteric. Nasopharynx, oropharynx, clear, no lesions. Moist Mucous membranes. 4) NECK: Full range of motion, no meningeal signs. No carotid bruit 5) LUNGS: Clear auscultation bilaterally, no wheezes, no rhonchi, no retractions. 6) HEART: Regular rate and rhythm, no murmur, no heave, no gallop. 7) ABDOMEN: No guarding, no rebound, no focal tenderness, negative McBurney's, negative Longo's, negative Rovsing's, negative peritoneal sign, 8) MUSCULOSKELETAL: Moving all extremities, no focal areas of tenderness, no obvious trauma. No peripheral edema or discoloration. 9) BACK: No CVA tenderness, no midline vertebral tenderness, no fluctuance, no step-off, no obvious trauma, no visual or palpable abnormality. 10) SKIN: No rash, no petechiae. 11) Psychiatric: Patient is oriented X 3, there is no agitation. DIFFERENTIAL DIAGNOSIS: In no particular order, including but not limited to myocardial ischemia, pulmonary embolus, chest wall pain, pleural inflammation and pulmonary infectious causes. - Personal History Current Tetanus Diphtheria and Acellular Pertussis (TDAP): Yes Tetanus Vaccine Date: < 10 YEARS - Medical/Surgical History Hx Asthma: No Hx Chronic Respiratory Disease: No Hx Diabetes: Yes Hx Cardiac Disease: No Hx Renal Disease: No Hx Cirrhosis: No Hx Alcoholism: No Hx HIV/AIDS: No Hx Splenectomy or Spleen Trauma: No Other PMH: TYPE 2 DIABETES, HTN, HYPOCHOLESTEREMIA, ACID REFLUX, hearing loss wears kyle hearing aides, PE - Social History Smoking Status: Never smoked Constitutional: Initial Vital Signs Temperature (C) 36.7 C 03/09/18 01:21 Heart Rate 77 03/09/18 01:21 Respiratory Rate 16 03/09/18 01:21 Blood Pressure 144/106 H 03/09/18 01:21 O2 Sat (%) 96 03/09/18 01:21 O2 Delivery Mode Nasal Cannula O2 (L/minute) 2 Allergies/Adverse Reactions: No Known Allergies Allergy (Verified 04/05/16 14:27) Home Medications: Medication Instructions Recorded Aspirin [Aspirin 81mg (*)] 81 mg PO HS 10/21/17 Atorvastatin Calcium [Lipitor 40 40 mg PO HS 10/21/17 mg (*)] Fluticasone Nasal [Flonase Nasal 1 sprays NASAL HS 10/21/17 [place]] Lisinopril [Zestril 20 mg (*)] 20 mg PO HS 10/21/17 Pantoprazole Sodium [Protonix 40mg 40 mg PO HS 10/21/17 (*)] Saxagliptin HCl [Onglyza] 2.5 mg PO HS 10/21/17 metFORMIN HCL [Glucophage 500 mg 1,000 mg PO DAILY@18 10/21/17 (*)] metFORMIN HCL [Glucophage 500 mg 1,500 mg PO DAILY 10/21/17 (*)] Metoprolol Succinate 25 mg PO DAILY #30 tab.er.24h 10/24/17 Xarelto 03/09/18 Medical Decision Making ED Course/Re-evaluation: Reviewed old medical records on this patient. Will obtain cardiac evaluation from the emergency department. I saw this patient independently based on established practice protocols. Care of patient under supervision of secondary supervising physician Dr Miles who independently evaluated patient. 2:11 a.m.: Consultation with hospitalist Dr. Michelle who will admit patient for chest pain, cardiac rule out - Data Points Laboratory Results: Laboratory Results 03/09/18 01:36 03/09/18 01:36 03/09/18 03/09/18 03/09/18 01:38 01:36 01:36 WBC RBC Hgb Hct MCV MCH MCHC RDW Plt Count MPV Neut % (Auto) Lymph % (Auto) [place] % (Auto) Eos % (Auto) Baso % (Auto) Nucleat RBC Rel Count Absolute Neuts (auto) Absolute Lymphs (auto) Absolute Monos (auto) Absolute Eos (auto) Absolute Basos (auto) Absolute Nucleated RBC Immature Gran % Immature Gran # PT 14.3 SEC SEC (12.0-15.0) INR 1.09 (0.83-1.16) APTT 31.0 SEC SEC (23.0-38.0) Sodium Potassium Chloride Carbon Dioxide Anion Gap BUN Creatinine Estimated GFR Glucose Calcium POC Troponin I 0.02 ng/mL ng/mL (0.00-0.08) NT-Pro-B Natriuret Pep Pending 03/09/18 03/09/18 01:36 01:36 WBC 8.78 10^3/uL 10^3/uL (3.80-9.50) RBC 4.76 10^6/uL 10^6/uL (4.40-6.38) Hgb 15.0 g/dL g/dL (13.7-17.5) Hct 42.8 % % (40.0-51.0) MCV 89.9 fL fL (81.5-99.8) MCH 31.5 pg pg (27.9-34.1) MCHC 35.0 g/dL g/dL (32.4-36.7) RDW 12.7 % % (11.5-15.2) Plt Count 233 10^3/uL 10^3/uL (150-400) MPV 11.0 fL fL (8.7-11.7) Neut % (Auto) 65.9 % % (39.3-74.2) Lymph % (Auto) 21.4 % % (15.0-45.0) [place] % (Auto) 8.3 % % (4.5-13.0) Eos % (Auto) 3.1 % % (0.6-7.6) Baso % (Auto) 0.7 % % (0.3-1.7) Nucleat RBC Rel Count 0.0 % % (0.0-0.2) Absolute Neuts (auto) 5.79 10^3/uL 10^3/uL (1.70-6.50) Absolute Lymphs (auto) 1.88 10^3/uL 10^3/uL (1.00-3.00) Absolute Monos (auto) 0.73 10^3/uL 10^3/uL (0.30-0.80) Absolute Eos (auto) 0.27 10^3/uL 10^3/uL (0.03-0.40) Absolute Basos (auto) 0.06 10^3/uL 10^3/uL (0.02-0.10) Absolute Nucleated RBC 0.00 10^3/uL 10^3/uL (0-0.01) Immature Gran % 0.6 % % (0.0-1.1) Immature Gran # 0.05 10^3/uL 10^3/uL (0.00-0.10) PT INR APTT Sodium 140 mEq/L mEq/L (135-145) Potassium 4.0 mEq/L mEq/L (3.3-5.0) Chloride 104 mEq/L mEq/L (97-110) Carbon Dioxide 24 mEq/l mEq/l (22-31) Anion Gap 12 mEq/L mEq/L (8-16) BUN 18 mg/dL mg/dL (7-23) Creatinine 0.9 mg/dL mg/dL (0.7-1.3) Estimated GFR > 60 Glucose 131 mg/dL H mg/dL (70-100) Calcium 9.5 mg/dL mg/dL (8.5-10.4) POC Troponin I NT-Pro-B Natriuret Pep Point of Care Test Results: Chemistry 03/09/18 01:38 POC Troponin I 0.02 ng/mL ng/mL (0.00-0.08) Departure - Departure Disposition: [facility] Inpatient Acute Clinical Impression: History of pulmonary embolism, Palpitations, PVCs (premature ventricular contractions) Chest pain Qualifiers: Chest pain type: other chest pain Qualified Code(s): R07.89 - Other chest pain ; R07.8 - Other chest pain Condition: Fair Referrals: NONE *PRIMARY CARE P,. [Primary Care Provider] - As per Instructions
[2018-03-09 01:53] LABS: PLATELET COUNT 233 10^3/uL (150-400)
[2018-03-09 02:01] LABS: INR 1.09 (0.83-1.16); PROTIME(PATIENT) 14.3 SEC (12.0-15.0)
[2018-03-09] MEDS ORDERED: ONDANSETRON 4 MG/2 ML VIAL IVP PRN (03:36)
[2018-03-09] MEDS ORDERED: ACETAMINOPHEN 325 MG TAB PO PRN (03:36)
[2018-03-09] MEDS ORDERED: HYDROCODONE/APAP 5/325 TAB PO PRN (03:36)
--- NOTE | 2018-03-09 05:50 | GHP ---
DATE OF ADMISSION: 03/09/2018 PRIMARY CARE PHYSICIAN: Dr. Gan. PRIMARY CENTRAL AISLE CASHIER: Dr. Gautam. SOURCE OF DATA: Patient provides history, appears reliable. EMR was reviewed, including previous hospital stay of October 2017. CHIEF COMPLAINT: Palpitations with chest discomfort. HISTORY OF PRESENT ILLNESS: This is a very pleasant 67-year-old gentleman with past medical history significant for SANTOSH on CPAP, HTN, DM2, HLD, history of ventricular tachycardia, GERD, history of PE in October 2017, for which he was admitted and currently on Xarelto, who presents to the emergency department today with complaints of sudden onset of palpitations starting approximately midnight while he was sitting watching TV. The patient reports that the palpitations caused some discomfort, but no persistent chest pain or pressure. He denies any significant dyspnea. No lower extremity edema. No orthopnea. The patient reports that he had experienced palpitations after his diagnosis of PE from October until about January, when it stopped. He had been placed on metoprolol daily and has not had any issues with palpitations since that time. He recently saw Dr. Gautam at the end of the week to review his recent echocardiogram findings, which were significant for persistent right ventricular enlargement following his PE. Otherwise, he reports this was normal. REVIEW OF SYSTEMS: 10-point review of systems negative except as noted above. ALLERGIES: No known drug allergies. HOME MEDICATIONS: As listed in EMR: Metformin 1500 mg p.o. daily and then 1000 mg p.o. at 6:00 p.m., Xarelto saxagliptin 2.5 mg at h.s., Protonix 40 mg at h.s., metoprolol succinate 25 mg p.o. daily, lisinopril 20 mg p.o. at h.s., Flonase 1 spray at h.s., atorvastatin 40 mg p.o. at nighttime, aspirin 81 mg p.o. at h.s. PAST MEDICAL HISTORY: Significant for SANTOSH on CPAP; HTN; DM 2; HLD; history of PE in October 2017, on Xarelto; ventricular tachycardia; history of negative nuclear perfusion study on 10/25/2017; GERD; hearing deficit with hearing aids. PAST SURGICAL HISTORY: Patient denies, except for bilateral cataract extraction with lens placement. FAMILY HISTORY: The patient's son is due to complications of lupus with renal failure. No family history of DVT or PEs. SOCIAL HISTORY: Patient is . 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 He spends [place] in [place], [place] in [place]. He has cut back on his alcohol consumption, previously of 2 drinks per day down to less than that, but continues to have a drink daily. Denies any illicit drug use. No tobacco. CODE STATUS: Full. PHYSICAL EXAM: VITAL SIGNS: Upon arrival to the emergency department, blood pressure 144/106, heart rate 77, respiratory rate 16, O2 saturation 96% on room air with temperature of 36.7. Current vital signs available: Blood pressure 115/71, heart rate 87, respiratory rate 16, O2 saturation 92% on room air with temperature 36.7. GENERAL: No acute distress, pleasant adult gentleman, who is lying quietly in bed asleep with a CPAP in place, which he removes easily. HEAD: Normocephalic, atraumatic. EYES: Extraocular muscles are grossly intact. Pupils equal, round, reactive to light bilaterally and symmetric. No scleral icterus, conjunctival injection. Bilateral lens reflexes appreciated bilaterally. ENT: Mucous membranes appear moist. No oropharyngeal erythema or exudates. No nasal discharge. NECK: Supple. Trachea midline. CV: Regular rate and rhythm with occasional extra beat. No murmurs, rubs, or gallops appreciated. RESPIRATORY: Lungs are clear to auscultation bilaterally. No wheezes, rales, or rhonchi. ABDOMEN: Positive bowel sounds. Soft, nontender to palpation. No rebound, guarding, or masses appreciated. : No suprapubic tenderness to palpation. No Bynum catheter in place. EXTREMITIES: With some trace pretibial edema anteriorly on the left compared to the right, but is very minimal. Patient with 1+ pedal pulses bilaterally symmetric. NEURO: Grossly nonfocal. No facial drooping. Moves all extremities. Sits up independently. MUSCULOSKELETAL: Strength intact as noted above. PSYCH: Thought process, content, and questions are all appropriate. Patient is pleasant and cooperative. LABORATORY STUDIES: WBC is 8.78, H and H is 15.0, 42.8, MCV 89.9, platelet count is 233. No bands. Sodium 140, potassium 4.0, chloride 104, CO2 24, anion gap 12, BUN is 18, creatinine 0.9, GFR greater than 60, glucose is 131, calcium 9.5. BTNP is 226. Point of care troponin 0.02. PT is 14.3, INR is 1.09, PTT is 31.0. EKG was reviewed myself showing normal sinus rhythm in the 70s with PVCs ___ ventricular bigeminy. QTc 421. Telemetry was reviewed showing intermittent PVCs every 2-5 beats. Chest x-ray image was reviewed myself. Report is still pending. Negative chest and similar in appearance compared to previous imaging from October 2017. ASSESSMENT AND PLAN: Pleasant 67-year-old gentleman with a history of hypertension, hyperlipidemia, diabetes mellitus 2, history of pulmonary embolism in October on Xarelto, who presents to the emergency department today with complaints of sudden onset of palpitations and some chest discomfort. 1. Palpitations. Patient having symptomatic premature ventricular contractions. Appeared to be occurring every second or greater beat, not consistently in bigeminy. Initial cardiac evaluation is negative for evidence of ACS. He did have a negative nuclear perfusion study in October of 2017. The patient reports that he has been compliant on his Xarelto and has not had any hypoxia or tachycardia concerning for new PE. We will check electrolytes, TSH. Continue patient's beta edelmira when his med rec is available. Further consideration for discussion with Cardiology as per day team after a.m. labs obtained. 2. Chest discomfort. Patient reports this is just with the palpitation itself and does not have any persistent chest pain or pressure. We will plan to repeat a troponin later this morning, but reassuring that he has had negative perfusion study. 3. History of pulmonary embolism, on chronic anticoagulation. Plan to resume his Xarelto. Monitor on pulse ox. 4. Right ventricular enlargement following a pulmonary embolism, which is stable. Patient reports he had a recent echocardiogram and reviewed with Dr. Gautam in the last several days. 5. Chronic medical issues: a. Obstructive sleep apnea: Continue CPAP, which patient has at bedside. b. Benign essential hypertension: Blood pressures at this time are acceptable. We will plan to resume patient's home medications and antihypertensives. c. Diabetes type 2: Resume patient's home medications if no plans for any further evaluation requiring contrast. The patient is on metformin. d. Hyperlipidemia: Continue patient's statin. e. History of pulmonary embolism, on Xarelto: As noted above. f. Gastroesophageal reflux disease: Continue proton pump inhibitor. 6. Fluids, electrolyte, nutrition: Cardiac diet has been ordered. Encourage oral hydration. The patient does not appear dehydrated clinically. No IV fluids at this time. 7. Electrolytes: Checking magnesium, phosphorus. Potassium is adequate. Replace if needed. 8. Prophylaxis: SCDs. Patient is on Xarelto, which we will continue. 9. Code status: Full. 10. Disposition: The patient admitted to observation status on PCU for close cardiac monitoring pending further evaluation and resulting of tests. /[id number]/MODL MTDD
[2018-03-09] MEDS ORDERED: MAGNESIUM SULF 2 GM/WATER 50 ML IV ONE (08:39)
--- NOTE | 2018-03-09 09:02 | CPEKG ---
Test Reason : OPEN Blood Pressure : / mmHG Vent. Rate : 074 BPM Atrial Rate : 074 BPM P-R Int : 197 ms QRS Dur : 101 ms QT Int : 379 ms P-R-T Axes : 052 059 021 degrees QTc Int : 421 ms Sinus rhythm Ventricular bigeminy Abnormal T, consider ischemia, anterior leads Confirmed by Robson Yao ([id number]) on 03/09/2018 9:01:44 AM Referred By: Confirmed By:Robson Yao
[2018-03-09] MEDS ORDERED: METOPROLOL SUCCINATE XR 25 MG TAB PO SCH (10:45)
[2018-03-09 11:56] VITALS: BP 124/80
--- NOTE | 2018-03-09 12:16 | ASDISCHSUM ---
Discharge Information Plan Status:Home with No Needs Medically Cleared to Leave:03/09/2018 Discharge Date:03/09/2018 CM D/C Disposition:Home, Routine, Self-Care ADT D/C Disposition: Projected Discharge Date:03/09/2018 Transportation at D/C:Family Discharge Delay Reason: Follow-Up Date:03/09/2018 Discharge Slot: Final Diagnosis: Placement Information Patient Contact Information Contact Name:RODRIGUEZ Relationship: Address:[address] [place] [address] Work Phone: City:[facility] Phone: State/Zip Code:[place] [address] Email: Financial Information Financial Class:BC Primary Plan Desc: OUT OF STATE [facility] Primary Plan Number:[id number] Secondary Plan Desc: Secondary Plan Number: Assessment Information LACE LACE Length of stay for Answers: Less than 1 day current admission Acuity / Level of Answers: No Care: Did the patient have an inpatient admission? Comorbidities - select Answers: Other Notes: SANTOSH on all that apply CPAP, HTN, DM2, HLD,MOO D, h/o PE 10/2017, h/o vta h # of Emergency department Answers: 1-2 visits in the last 6 months Score: 2 Date Signed: 03/09/2018 12:15 PM Electronically Signed By:Divina Mtz RN Case Management Discharge Plan Note Case Management Discharge Discharge Order Complete? Answers: Yes Patient to Obtain Answers: Independently Medications Transportation Arranged Answers: Family/Friends Family Notified Answers: Yes Notes: in room Discharge Comments Notes: 03/09/2018 Case Management Note Pt to discharge without any needs from case management. Home independent with support and follow up as directed. Date Signed: 03/09/2018 12:15 PM Electronically Signed By:Divina Mtz RN Intervention Information
[2018-03-09] MEDS ORDERED: PNEUMOC 13-VAL CONJ-DIP CRM/PF 0.5 ML SYR IM ONE (12:56)
--- NOTE | 2018-03-09 15:02 | GDS ---
DISCHARGE DIAGNOSES: 1. Palpitations. 2. Obstructive sleep apnea on CPAP. 3. Hypertension. 4. Diabetes type 2. 5. Hyperlipidemia. 6. Pulmonary embolism in 2018 on Xarelto. 7. History of ventricular tachycardia. 8. Hearing deficit with hearing aids. HISTORY OF PRESENT ILLNESS: A pleasant 67-year-old male with history of SANTOSH on CPAP, hypertension, diabetes, hyperlipidemia, history of VT and recent pulmonary embolism, who presented to the ER with sudden onset of palpitations while watching TV. They caused some chest discomfort, but no chest pain or shortness of breath. He has no lower extremity swelling or pillow orthopnea. He reported some palpitations after his PE diagnosis in October until about January. He has been placed on metoprolol by his primary sheet rock hanger, Dr. Gautam, who we saw on Saturday and stated everything was well then. He reviewed the echocardiogram that showed persistent right ventricular enlargement. Does not think he has been drinking enough water. He went to a republican last night , had 3 ounces of whiskey and 2-1/2 beers, which is more than his normal. He drinks 2 cups of coffee a day. 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 HOSPITAL COURSE BY PROBLEM: 1. Palpitations: Triggered by alcohol, caffeine, and decreased fluid intake. He had 2 negative troponins. EKG and telemetry showed PVCs. Had a nuclear stress test in October that was normal. TSH was normal. Recent echocardiogram showed reduced RV function, which is persistent since his PE in October. I do not feel further cardiac evaluation is warranted at this time. I advised him to decrease alcohol and caffeine intake and drink plenty of fluids. He is on a beta edelmira. If symptoms are persistent, he can call his sheet rock hanger. 2. Recent pulmonary embolism. He has been compliant with his Xarelto. 3. SANTOSH, continue CPAP. 4. Diabetes. Metformin and saxagliptin. 5. Hypertension. Lisinopril. 6. Hyperlipidemia. Statin. DISP: stable for discharge Meds: no changes PHYSICAL EXAMINATION: VITAL SIGNS: Temperature 36.6, blood pressure 124/80, heart rate in the 70s, respirations 18, 94% on room air. GENERAL: Overweight, but no acute distress. HEENT: PERRLA. Moist mucous membranes. CV: Is regular rate and rhythm with an occasional extra beat. No murmur. LUNGS: Are clear. ABDOMEN: Soft, nontender, nondistended. Positive bowel sounds. : No Bynum. MUSCULOSKELETAL: 5/5 upper and lower extremity strength. NEURO: CN 2 through 12 intact. PSYCH: Alert and oriented x3. TIME SPENT: On discharge greater than 30 minutes counseling patient on alcohol and caffeine intake. He is to follow up with Dr. Gautam. /[id number]/MODL PEE
== END 2018-03-09 13:42 | disposition home or self-care (01) ==
LOC: F2W 03:13
PROVIDERS: ADMIT Family Medicine; ATTEND Internal Medicine
DX: R00.2 Palpitations (principal); G47.33 Obstructive sleep apnea (adult) (pediatric); E11.9 Type 2 diabetes mellitus without complications; I10 Essential (primary) hypertension; E78.00 Pure hypercholesterolemia, unspecified; H91.93 Unspecified hearing loss, bilateral; K21.9 Gastro-esophageal reflux disease without esophagitis; Z86.711 Personal history of pulmonary embolism; Z23 Encounter for immunization
CPT/HCPCS: 71046; 90471; 93005; G0378; 84484-PO; G0009; J3475

== ENCOUNTER → 2018-04-21 | Outpatient (CLI) | payer OTHER, BC ==
[~2018-04-21] MED LIST: IOPAMIDOL (ISOVUE 370) 100 ML BTL IV ONE
== END ==
LOC: FIMAGING 15:03
PROVIDERS: ATTEND Internal Medicine Pulmonary Disease
DX: I26.99 Other pulmonary embolism without acute cor pulmonale (principal); K80.20 Calculus of gallbladder without cholecystitis without obstruction
CPT/HCPCS: 71275; Q9967; 82565-PO

== ENCOUNTER → 2018-05-07 | Outpatient (CLI) | payer OTHER, BC ==
[~2018-05-07] MED LIST changes: +GADOBUTROL 10 ML VIAL IVP ONE; -IOPAMIDOL (ISOVUE 370) 100 ML BTL IV ONE
== END ==
LOC: FIMAGING 17:54
PROVIDERS: ATTEND Internal Medicine Pulmonary Disease
DX: G95.9 Disease of spinal cord, unspecified (principal)
CPT/HCPCS: 72157; A9585

== ENCOUNTER → 2018-08-29 | Outpatient (CLI) | payer OTHER | LOC: FIMAGING 11:37 | PROVIDERS: ATTEND Neurological Surgery | DX: G95.9 Disease of spinal cord, unspecified (principal); M50.322 Other cervical disc degeneration at C5-C6 level; M48.02 Spinal stenosis, cervical region; G31.9 Degenerative disease of nervous system, unspecified; R90.89 Other abnormal findings on diagnostic imaging of central nervous system | CPT/HCPCS: A9585 ==

== ENCOUNTER → 2018-09-01 | Outpatient (CLI) | payer OTHER | LOC: FIMAGING 09:31 | PROVIDERS: ATTEND Neurological Surgery | DX: G95.9 Disease of spinal cord, unspecified (principal); M53.84 Other specified dorsopathies, thoracic region; M51.34 Other intervertebral disc degeneration, thoracic region; M48.061 Spinal stenosis, lumbar region without neurogenic claudication | CPT/HCPCS: A9585 ==